=== PATIENT | female | born 1950 | race American Indian/Alaskan Native ===

== ENCOUNTER 2018-01-12 07:38 | Day surgery (SDC) | payer MEDICARE, BC ==
[2018-01-12] MEDS: Polymyxin B/Trimethoprim 10 ML Bottle EYELF SCH ×4 (08:17→10:26)
[2018-01-12] MEDS: Brimonidine 0.2% Ophth Soln 5 ML Bottle EYELF SCH ×4 (08:20→10:26)
[2018-01-12] MEDS: Phenylephrine 2.5% Ophth Soln 2 ML Bot EYELF SCH ×6 (08:25→10:24)
[2018-01-12] MEDS: Tropicamide 1% Ophth Soln 15 ML Bottle EYELF SCH ×4 (08:31→09:35)
--- NOTE | 2018-01-12 08:52 | PCM.PREANE ---
Preanesthetic Assessment - Anesthesia/Transfusion/Family Hx Transfusion History: No Prior Transfusion(s) - Review of Systems General: No Symptoms Pulmonary: No Symptoms Cardiovascular: No Symptoms Gastrointestinal: No Symptoms Neurological: No Symptoms - Physical Assessment NPO Status Date: 01/11/18 NPO Status Time: 23:30 O2 Sat by Pulse Oximetry: 98 Respiratory Rate: 18 Vital Signs: Last Vital Signs Temp 97.6 F 01/12/18 08:00 Pulse 50 L 01/12/18 08:00 Resp 18 01/12/18 08:00 BP 103/50 L 01/12/18 08:00 Pulse Ox 98 01/12/18 08:00 Weight: 92.079 kg ASA Class: 3 Mental Status: Alert & Oriented x3 Airway Class: Mallampati = 3 Dentition: Reports: [place](s), Bridge, Implants Thyro-Mental Finger Breadths: 3 ROM/Head Extension: Full Lungs: Clear to Auscultation - Allergies Allergies/Adverse Reactions: Allergies Allergy/AdvReac Type Severity Reaction Status Date / Time erythromycin base Allergy Cannot Verified 01/11/18 13:03 Remember grass pollen Allergy Cannot Verified 01/11/18 13:03 Remember weed pollen Allergy Cannot Verified 01/11/18 13:03 Remember - Acknowledgements Anesthesia Type Planned: MAC Pt an Appropriate Candidate for the Planned Anesthesia: Yes Alternatives and Risks of Anesthesia Discussed w Pt/Guardian: Yes Pt/Guardian Understands and Agrees with Anesthesia Plan: Yes PreAnesthesia Questionnaire Cardiovascular History: Reports: Hypertension Respiratory History: Reports: Asthma Gastrointestinal History: Reports: GERD Genitourinary History: Reports: Other (See Below) (urinary frequency) Musculoskeletal History: Reports: Arthritis Psychiatric History: Reports: Depression Endocrine/Metabolic History: Reports: Hypothyroidism - Past Surgical History HEENT Surgical History: Reports: Cataract Surgery, Naso-Sinus Surgery Endocrine Surgical History: Reports: Thyroidectomy Musculoskeletal Surgical History: Reports: Knee Replacement (bilateral, plus Lt TKR revision) - HOME MEDS Home Medications: Home Meds . [Unable to Verify Home Med List] 01/11/18 [History] - CURRENT (IN HOUSE) MEDS Current Meds: Current Medications Brimonidine Tartrate (Alphagan 0.2% Ophth Soln) 0 ml EYELF ASDIRECTED RICARDO Stop: 01/12/18 18:00 Last Admin: 01/12/18 08:20 Dose: 1 drop Cefuroxime Sodium (Zinacef) 0 mg EYELF ASDIRECTED RICARDO Stop: 01/12/18 18:00 Lidocaine HCl (Xylocaine-Mpf 1%) 0 ml INJECT ASDIRECTED RICARDO Stop: 01/12/18 18:00 Phenylephrine HCl (Porfirio-Synephrine 2.5% Ophth Soln) 0 ml EYELF ASDIRECTED RICARDO Stop: 01/12/18 18:00 Last Admin: 01/12/18 08:45 Dose: 1 drop Pilocarpine HCl (Pilocar 4% Ophth Soln) 0 ml EYELF ASDIRECTED RICARDO Stop: 01/12/18 18:00 Polymyxin/Trimethoprim Sulfate (Polytrim Ophth Soln) 0 ml EYELF ASDIRECTED RICARDO Stop: 01/12/18 18:00 Last Admin: 01/12/18 08:17 Dose: 1 drop Tetracaine HCl (Tetracaine 0.5% Steri-Unit Francine) 0 ml EYELF ASDIRECTED RICARDO Stop: 01/12/18 18:00 Tropicamide (Mydriacyl 1% Ophth Soln) 0 ml EYELF ASDIRECTED RICARDO Stop: 01/12/18 18:00 Last Admin: 01/12/18 08:40 Dose: 1 drop
[2018-01-12] MEDS: Tetracaine HCl/PF 0.5% 4 ML Bottle EYELF SCH ×3 (09:46→10:24)
[2018-01-12] MEDS: Lidocaine 1% PF 2 ML SDV INJECT SCH ×2 (10:00→10:24)
[2018-01-12] MEDS: Cefuroxime 10 MG/ML SYRINGE EYELF SCH ×2 (10:12→10:26)
[2018-01-12] MEDS: Pilocarpine 4% Ophth Soln 15 ML Bot EYELF SCH ×2 (10:13→10:26)
== END 2018-01-12 10:24 | disposition home or self-care (01) ==
LOC: JD.SDS 07:38
PROVIDERS: ATTEND Ophthalmology
DX: H25.812 Combined forms of age-related cataract, left eye (principal); H16.103 Unspecified superficial keratitis, bilateral; H16.223 Keratoconjunctivitis sicca, not specified as Sjogren's, bilateral; H02.831 Dermatochalasis of right upper eyelid; H02.834 Dermatochalasis of left upper eyelid; I10 Essential (primary) hypertension; J45.909 Unspecified asthma, uncomplicated; K21.9 Gastro-esophageal reflux disease without esophagitis; M19.90 Unspecified osteoarthritis, unspecified site; E03.9 Hypothyroidism, unspecified; F31.9 Bipolar disorder, unspecified; Z79.82 Long term (current) use of aspirin; Z79.899 Other long term (current) drug therapy; Z88.8 Allergy status to other drugs, medicaments and biological substances; Z98.41 Cataract extraction status, right eye; Z96.1 Presence of intraocular lens
CPT/HCPCS: 66984; C1780; J0697; A9270-GY; J2001